=== PATIENT | male | born 1955 | race Caucasian/White ===

== ENCOUNTER 2016-09-05 15:05 | Inpatient (IN) | payer BC, OTHER ==
--- NOTE | ~2016-09-05 | CN ---
Consultation Report [place] [id number] [place]. [address] NAME: ESTEBAN TONY : 53 STATUS : ADM Rupinder PAT#: [id number] AGE: 60 ADM/REG DATE : 09/05/16 MR#: [id number] REPORT SERV DATE: 09/05/16 DICTATED BY: MARIELLE DIAZ DATE: 09/05/16 REPORT STATUS : Draft TRANSCRIBED BY: MODL DATE: 09/05/16 DATE OF CONSULTATION: 09/05/2016 DICTATION ENDS HERE IOO/STEFFENL Marielle Diaz MD / [id number] CC: Josh Abraham MICHAEL D.
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
--- NOTE | ~2016-09-05 | DS ---
Discharge Summary [facility] [address] [place]. [address] NAME: ESTEBAN TONY : 53 STATUS : DIS IN PAT#: [id number] AGE: 60 ADM/REG DATE : 09/05/16 MR#: [id number] REPORT SERV DATE: 09/06/16 DICTATED BY: SASCHA SCOTT DATE: 09/06/16 REPORT STATUS : Draft TRANSCRIBED BY: MODL DATE: 09/06/16 ADMISSION DATE: 09/05/2016 DISCHARGE DATE: 09/06/2016 REASON FOR ADMISSION: Right foot cellulitis, right toe fractures. HISTORY OF PRESENT ILLNESS: Please refer to Dr. Lazo's history and physical dated 09/06/2016 for complete details regarding the patient's admission. In brief, the patient is admitted under the Hospitalist Service for his right foot cellulitis. HOSPITAL COURSE: The patient had uncomplicated hospital course. He had lacerated his right toe. It was evaluated by home health and noticed that it was red and purple and requested him to come in to the ER for further evaluation. In the ER, he had a CT scan of his abdomen and pelvis without contrast along with a CT scan of his lower extremity and a CT scan of his chest without contrast. The CT scan of his chest without contrast has showed bilateral pleural effusions and previous thoracic spine fusion. CT scan of his abdomen and pelvis were unremarkable. CT scan of his lower extremity showed several fractures of the right foot including the second, third, and fifth metatarsal bones. He was started on vancomycin. Dr. Low was consulted as he is his clinic patient in the [facility] who recommended continuing his wound VAC. His cellulitis had markedly improved to the point where there was very minimal erythema around his laceration. He did not have a leukocytosis or fever. Reviewing his chest x-ray had very small pleural effusion and he was oxygenating just fine, and there was no need for a thoracentesis. He did receive a dose or two of vancomycin. Dr. Low had recommended following up in the [facility] given the fact that the patient has no sensation in his lower extremities and does not walk, it was felt that his fractures would just have to heal on their own. The patient was requesting to go home. He will be discharged home in a stable condition. DISCHARGE DIAGNOSES: Right foot cellulitis, almost resolved; right toe laceration with fractures of the second, third, and fifth metatarsal bones; type 2 diabetes; functional paraplegia secondary to a spinal cord injury with urinary incontinence, fecal incontinence, status post colostomy bag, chronic Cosby catheter; history of pressure ulcers in the right and left lower extremity, status post wound VAC placement of the left lower extremity. PROCEDURES: Include CT scan of the chest without contrast. CT scan of the abdomen and pelvis without contrast. CT scan of the lower extremity without contrast. METAPHYSICIAN: Vikram Low M.D. DISCHARGE MEDICATIONS: Include Lipitor 80 mg daily, carvedilol 25 mg twice a day, Celexa 20 mg daily, vitamin B12 1000 mcg daily, Cartia XT 300 mg daily, ferrous sulfate 325 mg twice a day, folic acid 1 mg daily, lisinopril 10 mg daily, Remeron 30 mg at bedtime, oxybutynin 10 mg daily, Prilosec 20 mg daily, trazodone 50 mg at bedtime, Tylenol p.r.n., and Duricef 1000 mg twice a day for five days. FOLLOWUP: The patient will follow up with Dr. Low in the [facility] on Saturday. Discharge Summary [address] [address] NAME: ESTEBAN TONY : 53 STATUS : DIS IN PAT#: [id number] AGE: 60 ADM/REG DATE : 09/05/16 MR#: [id number] REPORT SERV DATE: 09/06/16 DICTATED BY: SASCHA SCOTT DATE: 09/06/16 REPORT STATUS : Draft TRANSCRIBED BY: NICOLE DATE: 09/06/16 We will resume his home health with [facility]. JUAN/NICOLE Sascha Scott MD / [id number] CC: MD ANH Ya MICHAEL D.
[~2016-09-05 15:05] MED LIST: ASAB PO; B121000P; B121000P IM; CELEBREX2 PO; COREG25 PO; GLUCPH PO; IBU-200200 MG PO; JANUVIA100 MG PO; MOBIC7.5 PO; PRINZIDE1 TA1 PO; VICODINTAB PO; VITAMIN B-121000 MC1 SC; VITAMIN D31000 UNIT PO; Vitamin D3; ZESTORETIC PO; ZOCOR40 PO; ZOCOR80 MG PO
[2016-09-05 16:42] LABS: BASOPHILS 0.2 %; BASOPHILS ABSOLUTE 0.02 10/3/uL (0.0-0.16); EOSINOPHILS 2.3 %; EOSINOPHILS ABSOLUTE 0.22 10/3/uL (0.0-0.53); ER CBC TAT 0 Hrs 08 Mins; HEMOGLOBIN 8.5 g/dL (13.6-17.8); IMMATURE GRANULOCYTES 1.1 %; LYMPHOCYTES 16.5 %; LYMPHOCYTES ABSOLUTE 1.55 10/3/uL (0.67-4.30); MEAN CORPUSCULAR HEMOGLOB 30.2 pg (26.0-34.0); MEAN PLATELET VOLUME 9.4 fL (9.2-13.0); MONOCYTES ABSOLUTE 0.47 10/3/uL (0.21-1.20); NEUTROPHILS 74.9 %; NEUTROPHILS ABSOLUTE 7.02 10/3/uL (2.02-8.40); PLATELET COUNT 239 10/3/uL (150-400); RBC DISTRIBUTION WIDTH 16.6 % (12.0-16.0); RED CELL COUNT 2.81 10/6/uL (4.7-6.1); WHITE BLOOD CELLS 9.4 10/3/uL (4.5-10.5)
[2016-09-05 16:43] LABS: MANUAL DIFF NO %
[2016-09-05 17:00] LABS: A/G RATIO 0.7 (0.7-1.9); ALBUMIN 2.7 G/DL (3.5-5.0); ALKALINE PHOSPHATASE 94 U/L (45-117); BUN (BLOOD UREA NITROGEN) 31 MG/DL (6-23); CALCIUM, SERUM 8.5 MG/DL (8.5-10.4); CHLORIDE, SERUM 114 MMOL/L (96-112); CO2 (CARBON DIOXIDE) 22 MMOL/L (24-34); CREATININE 1.16 MG/DL (0.70-1.30); GFR AFRICAN AMERICAN 78 ML/MIN (>=60); GFR NON AFRICAN AMERICAN 68 ML/MIN (>=60); GLOBULIN 4.1 G/DL (2.5-4.1); POTASSIUM, SERUM 4.4 MMOL/L (3.5-5.3); SGOT(AST) 8 U/L (5-40); SGPT(ALT) 17 U/L (5-65); SODIUM, SERUM 145 MMOL/L (135-148); TOTAL PROTEIN 6.8 G/DL (6.0-8.5)
[2016-09-05 17:01] LABS: GLUCOSE, SERUM 157 MG/DL (60-99)
[2016-09-05] MEDS ORDERED: LIPITOR80 MG PO (18:42)
[2016-09-05] MEDS ORDERED: CELEXA20 PO (18:43)
[2016-09-05] MEDS ORDERED: COREG12 PO (18:43)
[2016-09-05] MEDS ORDERED: DSS PO (18:43)
[2016-09-05] MEDS ORDERED: CYANO1000T PO (18:44)
[2016-09-05] MEDS ORDERED: FOLIC PO (18:45)
[2016-09-05] MEDS ORDERED: CARTIA XT300 MG/24 PO (18:45)
[2016-09-05] MEDS ORDERED: FERROUS SULF325 M1 PO (18:45)
[2016-09-05] MEDS ORDERED: DITROPAN XL10 MG PO (18:46)
[2016-09-05] MEDS ORDERED: PRILO PO (18:46)
[2016-09-05] MEDS ORDERED: TRAZ50 PO (18:47)
[2016-09-05] MEDS ORDERED: T PO (18:48)
[2016-09-05] MEDS ORDERED: REMERON30 MG PO (18:59)
[2016-09-05] MEDS ORDERED: PRIN10 PO (19:00)
[2016-09-05 21:11] LABS: TROPONIN I 0.26 NG/ML (<0.05)
[2016-09-06 05:43] LABS: HEMATOCRIT 24.1 % (40.0-51.0); HEMOGLOBIN 8.1 g/dL (13.6-17.8); MEAN CORPUS HGB CONC 33.6 g/dL (32.0-36.0); MEAN CORPUSCULAR HEMOGLOB 30.1 pg (26.0-34.0); MEAN CORPUSCULAR VOLUME 89.6 fL (80-100); MEAN PLATELET VOLUME 9.3 fL (9.2-13.0); PLATELET COUNT 216 10/3/uL (150-400); RED CELL COUNT 2.69 10/6/uL (4.7-6.1); WHITE BLOOD CELLS 9.1 10/3/uL (4.5-10.5)
[2016-09-06 05:45] LABS: MANUAL DIFF YES %
[2016-09-06 05:58] LABS: ALBUMIN 2.5 G/DL (3.5-5.0); BUN (BLOOD UREA NITROGEN) 29 MG/DL (6-23); CALCIUM, SERUM 8.7 MG/DL (8.5-10.4); CHLORIDE, SERUM 117 MMOL/L (96-112); CO2 (CARBON DIOXIDE) 19 MMOL/L (24-34); GFR AFRICAN AMERICAN 106 ML/MIN (>=60); GFR NON AFRICAN AMERICAN 92 ML/MIN (>=60); GLUCOSE, SERUM 163 MG/DL (60-99); PHOSPHORUS, SERUM 3.9 MG/DL (2.5-4.5); SODIUM, SERUM 146 MMOL/L (135-148)
[2016-09-06 07:19] LABS: EOSINOPHILS 3 %; EOSINOPHILS ABSOLUTE (CALC) 0.27 10/3/uL (0.0-0.53); LYMPHOCYTES 15 %; LYMPHOCYTES ABSOLUTE (CALC) 1.37 10/3/uL (0.67-4.30); MONOCYTES 6 %; MONOCYTES ABSOLUTE (CALC) 0.55 10/3/uL (0.21-1.20); NEUTROPHILS ABSOLUTE (CALC) 6.92 10/3/uL (2.02-8.40); SEGMENTED NEUTROPHIL (0) 76 %; TOTAL NUCLEATED CELLS 100
[2016-09-06 07:20] LABS: ANISOCYTOSIS 1+ (5-10/OIF) (0-5/OIF); RBC MORPHOLOGY NORM (NORMAL)
[2016-09-06] MEDS ORDERED: DURICEF PO (16:22)
== END 2016-09-06 17:14 | disposition home health service (06) | DRG 580 ==
LOC: ER 15:05 → 5SO 20:33 → CDU1 21:45 → 7NO 22:32
PROVIDERS: Emergency Medicine; Hospitalist
PROC: 0KBV0ZZ Excision of Right Foot Muscle, Open Approach (ICD-10-PCS; principal; 2016-09-06)
DX: L03.115 Cellulitis of right lower limb (principal); J90 Pleural effusion, not elsewhere classified; G82.20 Paraplegia, unspecified; S24.103S Unspecified injury at T7-T10 level of thoracic spinal cord, sequela; L89.619 Pressure ulcer of right heel, unspecified stage; E11.621 Type 2 diabetes mellitus with foot ulcer; S91.114A Laceration without foreign body of right lesser toe(s) without damage to nail, initial encounter; S92.511A Displaced fracture of proximal phalanx of right lesser toe(s), initial encounter for closed fracture; I25.10 Atherosclerotic heart disease of native coronary artery without angina pectoris; E11.9 Type 2 diabetes mellitus without complications; Z95.1 Presence of aortocoronary bypass graft; Z95.2 Presence of prosthetic heart valve; I10 Essential (primary) hypertension; E78.5 Hyperlipidemia, unspecified; Z98.1 Arthrodesis status; Z93.3 Colostomy status; L89.899 Pressure ulcer of other site, unspecified stage; R32 Unspecified urinary incontinence; R15.9 Full incontinence of feces; F17.210 Nicotine dependence, cigarettes, uncomplicated; Z74.01 Bed confinement status; Z87.891 Personal history of nicotine dependence
CPT/HCPCS: 71250; 73700-RT; 74176; 80053; 80069; 82962; 83735; 83880; 84484; 85025; 87040; 87070; 87205; 93005; 96365; 99285; A9270-GY; J3370

== ENCOUNTER 2016-09-24 13:26 | Inpatient (IN) | payer BC, OTHER ==
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
--- NOTE | ~2016-09-24 | OP ---
Record Of Operation [facility] [address] [place]. [address] NAME: ESTEBAN TONY : 53 STATUS : ADM IN [facility]#: [id number] AGE: 60 ADM/REG DATE : 09/24/16 MR#: [id number] REPORT SERV DATE: 09/26/16 DICTATED BY: VIKRAM ARIAS DATE: 09/25/16 REPORT STATUS : Draft TRANSCRIBED BY: MODL DATE: 09/25/16 DATE OF PROCEDURE: 09/25/2016 PREOPERATIVE DIAGNOSES: 1. Right diabetic foot ulcer with abscess, necrotic slough, and cellulitis. 2. Left stage IV posterolateral and heel pressure ulcers. 3. Nicotine dependence. 4. Diabetes mellitus type 2. 5. Hypertension. 6. Peripheral arterial disease. 7. T10 paraplegia. PROCEDURE PERFORMED: 1. Right ysdwf-xst-rmze amputation. 2. Sharp excisional debridement of stage IV left heel ulcer with debridement of skin, subcutaneous tissue, muscle, and bone (4.6 x 2.5 x 0.8 cm). 3. Sharp excisional debridement of stage IV left calf pressure ulcer with debridement of skin, subcutaneous tissue, and muscle (3.5 x 1.9 x 1.5 cm). ANESTHESIA: General. SURGEON: Vikram Arias M.D. ROLLED OATS MILL OPERATOR: Joe. COMPLICATIONS: None. DRAINS: None. ESTIMATED BLOOD LOSS: 100 mL. OPERATIVE TECHNIQUE: The patient was brought to the operating room and placed on the table in supine position. He underwent general endotracheal anesthesia and was prepped and draped in a sterile fashion. He had preoperative IV antibiotics. After he was prepped and draped in sterile fashion, his right leg was exsanguinated and the tourniquet was insufflated. The fish-mouth incision was made in the right distal thigh and carried into the muscular compartment with a 10 blade knife. Electrocautery was then used to dissect through the musculature, the dissection continued through the soft tissue around the femur until the anterior superficial femoral artery was identified at the bifurcation, it was clamped and divided with significant bleeding, and the cuff was re-insufflated several times without success and left insufflated with a minimal insufflation time. The named vessels were then sequentially clamped, divided, and doubly ligated with 0 Vicryl sutures as they were encountered throughout the dissection of the soft tissue with electrocautery Bovie. The entire muscle flap was excised along with the somewhat longer posterior skin flap. The periosteal elevator was then used to dissect more proximally on the bone, the bone was divided and the distal femur with the Gigli saw. The pneumatic saw was then used to bevel Record Of Operation [facility] [address] [place]. [address] NAME: ESTEBAN TONY : 53 STATUS : ADM IN PAT#: [id number] AGE: 60 ADM/REG DATE : 09/24/16 MR#: [id number] REPORT SERV DATE: 09/26/16 DICTATED BY: VIKRAM ARIAS DATE: 09/25/16 REPORT STATUS : Draft TRANSCRIBED BY: NICOLE DATE: 09/25/16 the anterior edge and size of the bone until they were smooth. The wound was then thoroughly irrigated. The anterior fascia was reapproximated at the level of muscle over the bone with interrupted 2-0 Vicryl sutures. The skin edges were then reapproximated at the level of the anterior and posterior fascia using interrupted 2-0 Vicryl pop-off sutures. The subcutaneous tissue was then thoroughly irrigated and the skin edges were reapproximated using armani, sterile dressings were then applied. Next, the two left leg wounds were identified, they were sharply debrided using curettes, scissors, and forceps, and these were used exclusively until all the necrotic tissue was removed. The left anterolateral leg ulcer was excised to include skin, subcutaneous tissue, and muscle to a size of 3.5 x 1.9 x 1.5 cm, and the left heel was debrided into the calcaneal bone including skin, subcutaneous tissue, and muscle with post debridement measurements of 4.6 x 2.5 x 0.8 cm. The patient tolerated the procedure well and Aquacel Ag was then placed on these wounds after they were thoroughly irrigated followed by dry gauze and roll gauze. He was extubated and taken to the recovery room in stable condition. All sponge and needle counts were reported correct. BC/NICOLE Vikram Arias M.D. / [id number] CC: Josh Mazariegos
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
[~2016-09-24 13:26] MED LIST changes: +CARTIA XT300 MG/24 PO; +CELEXA20 PO; +COREG12 PO; +CYANO1000T PO; +DITROPAN XL10 MG PO; +DSS PO; +DURICEF PO; +FERROUS SULF325 M1 PO; +FOLIC PO; +LIPITOR80 MG PO; +PRILO PO; +PRIN10 PO; +REMERON30 MG PO; +T PO; +TRAZ50 PO
[2016-09-24 15:17] LABS: BASOPHILS 0.2 %; BASOPHILS ABSOLUTE 0.02 10/3/uL (0.0-0.16); EOSINOPHILS ABSOLUTE 0.17 10/3/uL (0.0-0.53); HEMOGLOBIN 7.5 g/dL (13.6-17.8); IMMATURE GRANULOCYTES 1.2 %; LYMPHOCYTES 17.2 %; LYMPHOCYTES ABSOLUTE 1.49 10/3/uL (0.67-4.30); MEAN CORPUS HGB CONC 34.9 g/dL (32.0-36.0); MEAN CORPUSCULAR HEMOGLOB 30.4 pg (26.0-34.0); MEAN PLATELET VOLUME 8.8 fL (9.2-13.0); MONOCYTES 6.1 %; MONOCYTES ABSOLUTE 0.53 10/3/uL (0.21-1.20); NEUTROPHILS 73.3 %; NEUTROPHILS ABSOLUTE 6.33 10/3/uL (2.02-8.40); PLATELET COUNT 206 10/3/uL (150-400); RBC DISTRIBUTION WIDTH 18.5 % (12.0-16.0); RED CELL COUNT 2.47 10/6/uL (4.7-6.1); WHITE BLOOD CELLS 8.6 10/3/uL (4.5-10.5)
[2016-09-24 15:18] LABS: HEMATOCRIT 21.5 % (40.0-51.0); MANUAL DIFF NO %
[2016-09-24 15:25] LABS: INTERNATIONAL NORMAL RATI 1.1 UNITS (-); PROTIME (NOT ORD) 13.8 SEC (12.0-14.5)
[2016-09-24 15:30] LABS: CALCIUM, SERUM 9.4 MG/DL (8.5-10.4); CHLORIDE, SERUM 111 MMOL/L (96-112); CO2 (CARBON DIOXIDE) 22 MMOL/L (24-34); CREATININE 0.79 MG/DL (0.70-1.30); GFR AFRICAN AMERICAN 112 ML/MIN (>=60); GFR NON AFRICAN AMERICAN 97 ML/MIN (>=60); POTASSIUM, SERUM 4.1 MMOL/L (3.5-5.3); SODIUM, SERUM 144 MMOL/L (135-148)
[2016-09-24 15:31] LABS: BUN (BLOOD UREA NITROGEN) 24 MG/DL (6-23); GLUCOSE, SERUM 121 MG/DL (60-99)
[2016-09-24 16:29] LABS: CPK 101 U/L (0-200)
[2016-09-24 16:30] LABS: TROPONIN I 0.18 NG/ML (<0.05)
[2016-09-24] MEDS ORDERED: KLOR-CON M2020 MEQ PO (16:59)
[2016-09-25 05:04] LABS: BASOPHILS 0.1 %; BASOPHILS ABSOLUTE 0.01 10/3/uL (0.0-0.16); EOSINOPHILS 1.7 %; EOSINOPHILS ABSOLUTE 0.12 10/3/uL (0.0-0.53); IMMATURE GRANULOCYTES 1.1 %; IMMATURE GRANULOCYTES ABSOLUTE 0.08 10/3/uL (0.0-0.11); LYMPHOCYTES 15.4 %; MEAN CORPUS HGB CONC 33.9 g/dL (32.0-36.0); MEAN CORPUSCULAR VOLUME 88.6 fL (80-100); MEAN PLATELET VOLUME 8.9 fL (9.2-13.0); MONOCYTES 6.3 %; MONOCYTES ABSOLUTE 0.45 10/3/uL (0.21-1.20); NEUTROPHILS 75.4 %; NEUTROPHILS ABSOLUTE 5.37 10/3/uL (2.02-8.40); PLATELET COUNT 184 10/3/uL (150-400); RBC DISTRIBUTION WIDTH 18.5 % (12.0-16.0); WHITE BLOOD CELLS 7.1 10/3/uL (4.5-10.5)
[2016-09-25 05:09] LABS: HEMATOCRIT 18.6 % (40.0-51.0); HEMOGLOBIN 6.3 g/dL (13.6-17.8)
[2016-09-25 05:11] LABS: MANUAL DIFF NO %
[2016-09-25 05:24] LABS: BUN (BLOOD UREA NITROGEN) 22 MG/DL (6-23); CALCIUM, SERUM 8.8 MG/DL (8.5-10.4); CHLORIDE, SERUM 114 MMOL/L (96-112); CO2 (CARBON DIOXIDE) 22 MMOL/L (24-34); CREATININE 0.72 MG/DL (0.70-1.30); GFR AFRICAN AMERICAN 117 ML/MIN (>=60); GFR NON AFRICAN AMERICAN 101 ML/MIN (>=60); GLUCOSE, SERUM 115 MG/DL (60-99); POTASSIUM, SERUM 3.8 MMOL/L (3.5-5.3); SODIUM, SERUM 145 MMOL/L (135-148)
[2016-09-25 13:49] LABS: HEMATOCRIT 24.7 % (40.0-51.0); HEMOGLOBIN 8.2 g/dL (13.6-17.8)
[2016-09-25 19:07] LABS: HEMATOCRIT 22.9 % (40.0-51.0)
[2016-09-26 06:45] LABS: BASOPHILS 0 %; EOSINOPHILS 1.4 %; EOSINOPHILS ABSOLUTE 0.11 10/3/uL (0.0-0.53); HEMATOCRIT 21.8 % (40.0-51.0); HEMOGLOBIN 7.7 g/dL (13.6-17.8); IMMATURE GRANULOCYTES 0.5 %; IMMATURE GRANULOCYTES ABSOLUTE 0.04 10/3/uL (0.0-0.11); LYMPHOCYTES 11.3 %; MEAN CORPUS HGB CONC 35.3 g/dL (32.0-36.0); MEAN CORPUSCULAR HEMOGLOB 29.6 pg (26.0-34.0); MEAN PLATELET VOLUME 8.8 fL (9.2-13.0); MONOCYTES 5.9 %; MONOCYTES ABSOLUTE 0.47 10/3/uL (0.21-1.20); NEUTROPHILS 80.9 %; NEUTROPHILS ABSOLUTE 6.45 10/3/uL (2.02-8.40); PLATELET COUNT 170 10/3/uL (150-400); RBC DISTRIBUTION WIDTH 17.7 % (12.0-16.0)
[2016-09-26 06:47] LABS: MANUAL DIFF NO %; MEAN CORPUSCULAR VOLUME 83.8 fL (80-100)
[2016-09-26 06:57] LABS: A/G RATIO 0.6 (0.7-1.9); ALBUMIN 2.4 G/DL (3.5-5.0); BUN (BLOOD UREA NITROGEN) 21 MG/DL (6-23); CALCIUM, SERUM 8.3 MG/DL (8.5-10.4); CHLORIDE, SERUM 110 MMOL/L (96-112); CO2 (CARBON DIOXIDE) 21 MMOL/L (24-34); GFR AFRICAN AMERICAN 118 ML/MIN (>=60); GFR NON AFRICAN AMERICAN 102 ML/MIN (>=60); GLOBULIN 3.8 G/DL (2.5-4.1); GLUCOSE, SERUM 135 MG/DL (60-99); POTASSIUM, SERUM 3.8 MMOL/L (3.5-5.3); SGOT(AST) 10 U/L (5-40); SGPT(ALT) 10 U/L (5-65); SODIUM, SERUM 142 MMOL/L (135-148); TOTAL PROTEIN 6.2 G/DL (6.0-8.5)
[2016-09-26 06:58] LABS: ALKALINE PHOSPHATASE 78 U/L (45-117)
[2016-09-26 07:01] LABS: PREALBUMIN 12.3 MG/DL (17.0-43.0)
[2016-09-27 06:07] LABS: BASOPHILS 0.1 %; BASOPHILS ABSOLUTE 0.01 10/3/uL (0.0-0.16); EOSINOPHILS 1.5 %; EOSINOPHILS ABSOLUTE 0.12 10/3/uL (0.0-0.53); HEMATOCRIT 21.7 % (40.0-51.0); HEMOGLOBIN 7.3 g/dL (13.6-17.8); IMMATURE GRANULOCYTES 0.6 %; IMMATURE GRANULOCYTES ABSOLUTE 0.05 10/3/uL (0.0-0.11); LYMPHOCYTES 12.6 %; MANUAL DIFF NO %; MEAN CORPUS HGB CONC 33.6 g/dL (32.0-36.0); MEAN CORPUSCULAR HEMOGLOB 29.3 pg (26.0-34.0); MEAN CORPUSCULAR VOLUME 87.1 fL (80-100); MEAN PLATELET VOLUME 8.9 fL (9.2-13.0); MONOCYTES 6.9 %; MONOCYTES ABSOLUTE 0.55 10/3/uL (0.21-1.20); NEUTROPHILS 78.3 %; NEUTROPHILS ABSOLUTE 6.21 10/3/uL (2.02-8.40); PLATELET COUNT 189 10/3/uL (150-400); RBC DISTRIBUTION WIDTH 17.4 % (12.0-16.0); RED CELL COUNT 2.49 10/6/uL (4.7-6.1); WHITE BLOOD CELLS 7.9 10/3/uL (4.5-10.5)
[2016-09-28 05:36] LABS: BASOPHILS 0.1 %; BASOPHILS ABSOLUTE 0.01 10/3/uL (0.0-0.16); EOSINOPHILS 2.6 %; EOSINOPHILS ABSOLUTE 0.18 10/3/uL (0.0-0.53); HEMATOCRIT 20.5 % (40.0-51.0); IMMATURE GRANULOCYTES 0.9 %; IMMATURE GRANULOCYTES ABSOLUTE 0.06 10/3/uL (0.0-0.11); LYMPHOCYTES 16.3 %; LYMPHOCYTES ABSOLUTE 1.11 10/3/uL (0.67-4.30); MEAN CORPUS HGB CONC 34.1 g/dL (32.0-36.0); MEAN PLATELET VOLUME 8.8 fL (9.2-13.0); MONOCYTES 6.8 %; MONOCYTES ABSOLUTE 0.46 10/3/uL (0.21-1.20); NEUTROPHILS 73.3 %; NEUTROPHILS ABSOLUTE 4.99 10/3/uL (2.02-8.40); PLATELET COUNT 187 10/3/uL (150-400); RBC DISTRIBUTION WIDTH 17.4 % (12.0-16.0); RED CELL COUNT 2.33 10/6/uL (4.7-6.1); WHITE BLOOD CELLS 6.8 10/3/uL (4.5-10.5)
[2016-09-28 05:38] LABS: MANUAL DIFF NO %
[2016-09-28 05:54] LABS: CALCIUM, SERUM 8.4 MG/DL (8.5-10.4); CHLORIDE, SERUM 112 MMOL/L (96-112); CO2 (CARBON DIOXIDE) 23 MMOL/L (24-34); CREATININE 0.85 MG/DL (0.70-1.30); GFR AFRICAN AMERICAN 109 ML/MIN (>=60); GFR NON AFRICAN AMERICAN 94 ML/MIN (>=60); GLUCOSE, SERUM 128 MG/DL (60-99); POTASSIUM, SERUM 3.7 MMOL/L (3.5-5.3); SODIUM, SERUM 143 MMOL/L (135-148)
[2016-09-28 05:58] LABS: BUN (BLOOD UREA NITROGEN) 27 MG/DL (6-23)
[2016-09-30 07:05] LABS: BASOPHILS 0.3 %; BASOPHILS ABSOLUTE 0.02 10/3/uL (0.0-0.16); EOSINOPHILS 2.8 %; IMMATURE GRANULOCYTES 1.4 %; LYMPHOCYTES 17.5 %; LYMPHOCYTES ABSOLUTE 1.27 10/3/uL (0.67-4.30); MEAN CORPUS HGB CONC 33.5 g/dL (32.0-36.0); MEAN CORPUSCULAR HEMOGLOB 29.7 pg (26.0-34.0); MEAN CORPUSCULAR VOLUME 88.6 fL (80-100); MEAN PLATELET VOLUME 8.7 fL (9.2-13.0); MONOCYTES 5.4 %; MONOCYTES ABSOLUTE 0.39 10/3/uL (0.21-1.20); NEUTROPHILS 72.6 %; NEUTROPHILS ABSOLUTE 5.28 10/3/uL (2.02-8.40); PLATELET COUNT 223 10/3/uL (150-400); RBC DISTRIBUTION WIDTH 17.4 % (12.0-16.0); RED CELL COUNT 2.29 10/6/uL (4.7-6.1); WHITE BLOOD CELLS 7.3 10/3/uL (4.5-10.5)
[2016-09-30 07:13] LABS: HEMATOCRIT 20.3 % (40.0-51.0); HEMOGLOBIN 6.8 g/dL (13.6-17.8); MANUAL DIFF NO %
[2016-10-01 06:22] LABS: BASOPHILS 0.2 %; BASOPHILS ABSOLUTE 0.02 10/3/uL (0.0-0.16); EOSINOPHILS 3.7 %; IMMATURE GRANULOCYTES 2.2 %; IMMATURE GRANULOCYTES ABSOLUTE 0.18 10/3/uL (0.0-0.11); LYMPHOCYTES 18.1 %; LYMPHOCYTES ABSOLUTE 1.47 10/3/uL (0.67-4.30); MEAN CORPUS HGB CONC 33.7 g/dL (32.0-36.0); MEAN CORPUSCULAR HEMOGLOB 29.2 pg (26.0-34.0); MEAN CORPUSCULAR VOLUME 86.6 fL (80-100); MONOCYTES 6.2 %; NEUTROPHILS 69.6 %; NEUTROPHILS ABSOLUTE 5.64 10/3/uL (2.02-8.40); PLATELET COUNT 240 10/3/uL (150-400); RBC DISTRIBUTION WIDTH 17.9 % (12.0-16.0); WHITE BLOOD CELLS 8.1 10/3/uL (4.5-10.5)
[2016-10-01 06:24] LABS: BUN (BLOOD UREA NITROGEN) 23 MG/DL (6-23); CALCIUM, SERUM 8.9 MG/DL (8.5-10.4); CHLORIDE, SERUM 111 MMOL/L (96-112); CO2 (CARBON DIOXIDE) 22 MMOL/L (24-34); GFR AFRICAN AMERICAN 117 ML/MIN (>=60); GFR NON AFRICAN AMERICAN 101 ML/MIN (>=60); GLUCOSE, SERUM 119 MG/DL (60-99); HEMATOCRIT 27.9 % (40.0-51.0); HEMOGLOBIN 9.4 g/dL (13.6-17.8); MANUAL DIFF NO %; POTASSIUM, SERUM 3.7 MMOL/L (3.5-5.3); RED CELL COUNT 3.22 10/6/uL (4.7-6.1); SODIUM, SERUM 145 MMOL/L (135-148)
== END 2016-10-01 13:28 | DRG 239 ==
LOC: 2SO 13:26
PROVIDERS: Anesthesiology; Internal Medicine; Surgery
PROC: 0Y6C0Z3 Detachment at Right Upper Leg, Low, Open Approach (ICD-10-PCS; principal; 2016-09-24)
PROC: 0QBM0ZZ Excision of Left Tarsal, Open Approach (ICD-10-PCS; 2016-09-24)
PROC: 0KBT0ZZ Excision of Left Lower Leg Muscle, Open Approach (ICD-10-PCS; 2016-09-24)
PROC: 30233N1 Transfusion of Nonautologous Red Blood Cells into Peripheral Vein, Percutaneous Approach (ICD-10-PCS; 2016-09-25)
DX: E11.52 Type 2 diabetes mellitus with diabetic peripheral angiopathy with gangrene (principal); L89.894 Pressure ulcer of other site, stage 4; N17.9 Acute kidney failure, unspecified; J90 Pleural effusion, not elsewhere classified; I96 Gangrene, not elsewhere classified; G82.20 Paraplegia, unspecified; D62 Acute posthemorrhagic anemia; E11.42 Type 2 diabetes mellitus with diabetic polyneuropathy; L03.115 Cellulitis of right lower limb; L97.223 Non-pressure chronic ulcer of left calf with necrosis of muscle; E11.621 Type 2 diabetes mellitus with foot ulcer; I10 Essential (primary) hypertension; S92.901A Unspecified fracture of right foot, initial encounter for closed fracture; F17.210 Nicotine dependence, cigarettes, uncomplicated; I25.10 Atherosclerotic heart disease of native coronary artery without angina pectoris; I35.0 Nonrheumatic aortic (valve) stenosis; E78.5 Hyperlipidemia, unspecified; I73.9 Peripheral vascular disease, unspecified; M19.90 Unspecified osteoarthritis, unspecified site; Z79.4 Long term (current) use of insulin; Z95.1 Presence of aortocoronary bypass graft; Z83.3 Family history of diabetes mellitus; Z93.3 Colostomy status; Z88.3 Allergy status to other anti-infective agents; Z82.61 Family history of arthritis; Z89.611 Acquired absence of right leg above knee; L89.620 Pressure ulcer of left heel, unstageable; L89.610 Pressure ulcer of right heel, unstageable; L89.890 Pressure ulcer of other site, unstageable; E78.2 Mixed hyperlipidemia
CPT/HCPCS: 36415; 71010; 80048; 80053; 82550; 82962; 83036; 84134; 84484; 85014; 85018; 85025; 85610; 86850; 86900; 86901; 86920; 88307; 88311; 93005; 97110-GP; 97161-GP; 97166-GO; 97530-GP; 97605; A9270-GY; G0463; J0690; J2370; J2405; J2710; J3010; P9016; P9045

== ENCOUNTER 2016-11-14 17:22 | Inpatient (IN) | payer BC, OTHER ==
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
[~2016-11-14 17:22] MED LIST changes: +KLOR-CON M2020 MEQ PO
[2016-11-14 17:41] LABS: BASOPHILS 0.2 %; BASOPHILS ABSOLUTE 0.02 10/3/uL (0.0-0.16); EOSINOPHILS 4.3 %; EOSINOPHILS ABSOLUTE 0.38 10/3/uL (0.0-0.53); HEMATOCRIT 28.5 % (40.0-51.0); HEMOGLOBIN 9.5 g/dL (13.6-17.8); IMMATURE GRANULOCYTES 1.4 %; IMMATURE GRANULOCYTES ABSOLUTE 0.12 10/3/uL (0.0-0.11); LYMPHOCYTES 16.5 %; LYMPHOCYTES ABSOLUTE 1.46 10/3/uL (0.67-4.30); MANUAL DIFF NO %; MEAN CORPUS HGB CONC 33.3 g/dL (32.0-36.0); MEAN CORPUSCULAR HEMOGLOB 30.6 pg (26.0-34.0); MEAN CORPUSCULAR VOLUME 91.9 fL (80-100); MEAN PLATELET VOLUME 9.6 fL (9.2-13.0); MONOCYTES 5.5 %; MONOCYTES ABSOLUTE 0.49 10/3/uL (0.21-1.20); NEUTROPHILS 72.1 %; NEUTROPHILS ABSOLUTE 6.36 10/3/uL (2.02-8.40); PLATELET COUNT 232 10/3/uL (150-400); RBC DISTRIBUTION WIDTH 17.8 % (12.0-16.0); WHITE BLOOD CELLS 8.8 10/3/uL (4.5-10.5)
[2016-11-14 17:54] LABS: BUN (BLOOD UREA NITROGEN) 24 MG/DL (6-23); CALCIUM, SERUM 8.8 MG/DL (8.5-10.4); CHLORIDE, SERUM 108 MMOL/L (96-112); CREATININE 0.69 MG/DL (0.70-1.30); GFR AFRICAN AMERICAN 118 ML/MIN (>=60); GFR NON AFRICAN AMERICAN 102 ML/MIN (>=60); GLUCOSE, SERUM 130 MG/DL (60-99); SODIUM, SERUM 142 MMOL/L (135-148)
[2016-11-14 17:55] LABS: CO2 (CARBON DIOXIDE) 30 MMOL/L (24-34); POTASSIUM, SERUM 4.9 MMOL/L (3.5-5.3)
[2016-11-14 18:03] LABS: LACTATE 1.1 MMOL/L (0.3-2.4)
[2016-11-14] MEDS ORDERED: FERROUS SULF325 M1 PO (19:26)
[2016-11-14] MEDS ORDERED: VITC500 PO (19:27)
[2016-11-14] MEDS ORDERED: FOLIC PO (19:27)
[2016-11-14] MEDS ORDERED: CENTRUM PO (19:27)
[2016-11-14] MEDS ORDERED: VITAMIN B-121000 MC1 SL (19:28)
[2016-11-16 10:05] LABS: CALCIUM, SERUM 8.3 MG/DL (8.5-10.4); CHLORIDE, SERUM 110 MMOL/L (96-112); CO2 (CARBON DIOXIDE) 30 MMOL/L (24-34); CREATININE 0.71 MG/DL (0.70-1.30); GFR AFRICAN AMERICAN 117 ML/MIN (>=60); GFR NON AFRICAN AMERICAN 101 ML/MIN (>=60); GLUCOSE, SERUM 152 MG/DL (60-99); POTASSIUM, SERUM 4.2 MMOL/L (3.5-5.3); SODIUM, SERUM 145 MMOL/L (135-148); VANCOMYCIN TROUGH 30.9 MCG/ML (10.0-20.0)
[2016-11-16 10:06] LABS: BUN (BLOOD UREA NITROGEN) 19 MG/DL (6-23)
[2016-11-16 11:16] LABS: BASOPHILS 0.1 %; BASOPHILS ABSOLUTE 0.01 10/3/uL (0.0-0.16); EOSINOPHILS 2.7 %; EOSINOPHILS ABSOLUTE 0.18 10/3/uL (0.0-0.53); IMMATURE GRANULOCYTES 0.9 %; IMMATURE GRANULOCYTES ABSOLUTE 0.06 10/3/uL (0.0-0.11); LYMPHOCYTES 13.9 %; LYMPHOCYTES ABSOLUTE 0.94 10/3/uL (0.67-4.30); MEAN CORPUS HGB CONC 33.3 g/dL (32.0-36.0); MEAN CORPUSCULAR HEMOGLOB 30.7 pg (26.0-34.0); MEAN CORPUSCULAR VOLUME 92.2 fL (80-100); MONOCYTES 5.6 %; MONOCYTES ABSOLUTE 0.38 10/3/uL (0.21-1.20); NEUTROPHILS 76.8 %; NEUTROPHILS ABSOLUTE 5.21 10/3/uL (2.02-8.40); PLATELET COUNT 187 10/3/uL (150-400); RBC DISTRIBUTION WIDTH 17.8 % (12.0-16.0); WHITE BLOOD CELLS 6.8 10/3/uL (4.5-10.5)
[2016-11-16 11:17] LABS: HEMATOCRIT 20.1 % (40.0-51.0); HEMOGLOBIN 6.7 g/dL (13.6-17.8); RED CELL COUNT 2.18 10/6/uL (4.7-6.1)
[2016-11-16 11:19] LABS: MANUAL DIFF NO %
[2016-11-16 14:40] LABS: HEMATOCRIT 21.4 % (40.0-51.0); HEMOGLOBIN 7.1 g/dL (13.6-17.8)
[2016-11-18 09:13] LABS: MEAN CORPUS HGB CONC 33.3 g/dL (32.0-36.0); MEAN CORPUSCULAR HEMOGLOB 29.9 pg (26.0-34.0); MEAN CORPUSCULAR VOLUME 89.7 fL (80-100); MEAN PLATELET VOLUME 9.3 fL (9.2-13.0); PLATELET COUNT 176 10/3/uL (150-400); RBC DISTRIBUTION WIDTH 18.9 % (12.0-16.0); WHITE BLOOD CELLS 8.1 10/3/uL (4.5-10.5)
[2016-11-18 09:16] LABS: HEMATOCRIT 27.9 % (40.0-51.0); HEMOGLOBIN 9.3 g/dL (13.6-17.8); MANUAL DIFF YES %; RED CELL COUNT 3.11 10/6/uL (4.7-6.1)
[2016-11-18 09:27] LABS: BUN (BLOOD UREA NITROGEN) 18 MG/DL (6-23); CHLORIDE, SERUM 111 MMOL/L (96-112); CO2 (CARBON DIOXIDE) 27 MMOL/L (24-34); CREATININE 0.72 MG/DL (0.70-1.30); GFR AFRICAN AMERICAN 116 ML/MIN (>=60); GFR NON AFRICAN AMERICAN 100 ML/MIN (>=60); GLUCOSE, SERUM 167 MG/DL (60-99); POTASSIUM, SERUM 3.6 MMOL/L (3.5-5.3); SODIUM, SERUM 142 MMOL/L (135-148)
[2016-11-18 09:48] LABS: BAND NEUTROPHILS 7 %; EOSINOPHILS 4 %; EOSINOPHILS ABSOLUTE (CALC) 0.32 10/3/uL (0.0-0.53); IMMATURE GRANS ABSOLUTE (CALC) 0.08 10/3/uL (0.0-0.11); LYMPHOCYTES 17 %; LYMPHOCYTES ABSOLUTE (CALC) 1.38 10/3/uL (0.67-4.30); METAMYELOCYTES 1 %; MONOCYTES 4 %; MONOCYTES ABSOLUTE (CALC) 0.32 10/3/uL (0.21-1.20); NEUTROPHILS ABSOLUTE (CALC) 5.99 10/3/uL (2.02-8.40); SEGMENTED NEUTROPHIL (0) 67 %; TOTAL NUCLEATED CELLS 100
[2016-11-18 09:49] LABS: PLATELET ESTIMATE ADQ (ADEQUATE); POLYCHROMASIA 1+ (2-5/OIF) (0-1/OIF)
== END 2016-11-19 10:19 | disposition home health service (06) | DRG 616 ==
LOC: ER 17:22 → CDU1 19:07 → SDC/OF 11-15 14:36 → 5SO 11-15 17:17
PROVIDERS: Nurse Practitioner; Surgery
PROC: 0Y6D0Z3 Detachment at Left Upper Leg, Low, Open Approach (ICD-10-PCS; principal; 2016-11-15 13:45)
PROC: 30233N1 Transfusion of Nonautologous Red Blood Cells into Peripheral Vein, Percutaneous Approach (ICD-10-PCS; 2016-11-17)
DX: E11.621 Type 2 diabetes mellitus with foot ulcer (principal); L89.624 Pressure ulcer of left heel, stage 4; G82.20 Paraplegia, unspecified; L97.529 Non-pressure chronic ulcer of other part of left foot with unspecified severity; I25.10 Atherosclerotic heart disease of native coronary artery without angina pectoris; I10 Essential (primary) hypertension; Z79.899 Other long term (current) drug therapy; Z82.49 Family history of ischemic heart disease and other diseases of the circulatory system; Z83.3 Family history of diabetes mellitus; Z99.3 Dependence on wheelchair; Z95.1 Presence of aortocoronary bypass graft; Z95.2 Presence of prosthetic heart valve
CPT/HCPCS: 36415; 73590-LT; 73630-LT; 80048; 80202; 82962; 83605; 85014; 85018; 85025; 86850; 86900; 86901; 86920; 87040; 88307; 88311; 97161-GP; 99284; A9270-GY; J1940; J2250; J2405; J3010; J3370; P9016